=== PATIENT | female | born 1960 | race Caucasian/White ===

== ENCOUNTER 2024-11-30 18:14 | Emergency (ER) | payer BC ==
[2024-11-30] MEDS ORDERED: Sodium Chloride 0.9% 10 ML Syringe FLUSH PRN (19:06)
[2024-11-30 19:19] LABS: BASOPHILS PERCENT AUTO 0.2 % (0.1-1.3); EOSINOPHILS ABSOLUTE AUTO 0.07 K/uL (0.00-0.40); EOSINOPHILS PERCENT AUTO 0.6 % (0.0-5.4); HEMATOCRIT 42.1 % (34.3-46.0); HEMOGLOBIN 14.2 g/dL (11.2-15.5); IMMATURE GRAN ABSOLUTE AUTO 0.03 K/uL (0.00-0.23); IMMATURE GRAN PERCENT AUTO 0.3 % (0.0-0.7); LYMPHOCYTES ABSOLUTE AUTO 1.91 K/uL (0.8-3.3); MEAN CORPUSCULAR HEMOGLOBIN 29.7 pg (31.6-35.5); MEAN CORPUSCULAR HGB CONC 33.7 g/dL (31.6-35.5); MEAN CORPUSCULAR VOLUME 88.1 fL (81.4-99.0); MONOCYTES ABSOLUTE AUTO 1.21 K/uL (0.20-0.90); MONOCYTES PERCENT AUTO 10.1 % (3.3-12.6); NEUTROPHILS ABSOLUTE AUTO 8.69 K/uL (1.0-7.6); NEUTROPHILS PERCENT AUTO 72.8 % (40.0-78.1); PLATELET COUNT,PLT 240 K/uL (130-375); RED BLOOD CELL COUNT 4.78 M/uL (3.77-5.24); WHITE BLOOD CELL COUNT,WBC 11.9 K/uL (3.2-11.0)
[2024-11-30 19:20] LABS: BASOPHILS ABSOLUTE AUTO 0.02 K/uL (0.00-0.10)
[2024-11-30] MEDS: Ketorolac 15 MG/ML SDV IVPUSH ONE (19:34)
[2024-11-30] MEDS: Ondansetron 4 MG/2 ML SDV IVPUSH ONE (19:34)
[2024-11-30 19:40] LABS: ALANINE AMINOTRANSFERASE,ALT 16 U/L (12-78); ALBUMIN 3.5 g/dL (3.4-5.0); ALKALINE PHOSPHATASE 63 U/L (46-116); ANION GAP 10.7 mmol/L (5.0-14.0); ASPARTATE AMNIOTRANSFERASE,AST 8 U/L (15-37); BILIRUBIN TOTAL 1.1 mg/dL (0.2-1.0); BLOOD UREA NITROGEN,BUN 10 mg/dL (7-18); CALCIUM 9.4 mg/dL (8.5-10.1); CARBON DIOXIDE,CO2 28 mmol/L (21-32); CHLORIDE,CL 102 mmol/L (100-108); CREATININE 1.1 mg/dL (0.6-1.0); ESTIMATED GFR 56 mL/min (>60); GLUCOSE RANDOM 101 mg/dL (74-106); POTASSIUM,K 3.7 mmol/L (3.6-5.2); PROTEIN TOTAL,TP 7.2 g/dL (6.4-8.2); SODIUM,NA 137 mmol/L (140-148)
[2024-11-30] MEDS: Iopamidol 612 MG/ML 100 ML Bottle IV SCH (19:48)
[2024-11-30] MEDS: Sodium Chloride 0.9% 80 ML IV SCH (19:48)
[2024-11-30] MEDS: Sodium Chloride 0.9% 1,000 ML IV SCH (19:57)
[2024-11-30 21:10] LABS: APPEARANCE,URINE CLEAR (CLEAR); BILIRUBIN,URINE NEGATIVE (NEGATIVE); COLOR,URINE YELLOW (YELLOW); GLUCOSE,URINE NEGATIVE (NEGATIVE); KETONES,URINE TRACE mg/dL (NEGATIVE); LEUKOCYTE ESTERASE,URINE NEGATIVE (NEGATIVE); NITRITE,URINE NEGATIVE (NEGATIVE); OCCULT BLOOD,URINE TRACE-INTACT (NEGATIVE); PROTEIN,URINE NEGATIVE (NEGATIVE); UROBILINOGEN,URINE 0.2 EU/dL (0.2-1.0)
[2024-11-30 21:15] LABS: AMORPHOUS SEDIMENT,URINE NOT SEEN; BACTERIA,URINE FEW; EPITHELIAL CELLS,URINE FEW; MUCUS,URINE NOT SEEN; RBC,URINE 0-5 (0-5); WBC,URINE 0-5 (0-5)
[2024-11-30] MEDS: AMPICILLIN ONE (21:38)
[2024-11-30] MEDS: SULBACTAM ONE (21:38)
[2024-11-30] MEDS: Sodium Chloride 0.9% 100 ML ONE (21:38)
[2024-11-30] MEDS: Ampicillin/Sulbactam Na 3 GM in Sodium Chloride 0.9% 100 ML IV ONE (21:42)
== END 2024-11-30 22:14 | disposition home or self-care (01) ==
LOC: JP.ED 18:14
DX: K57.32 Diverticulitis of large intestine without perforation or abscess without bleeding (principal); Z79.899 Other long term (current) drug therapy; Z79.82 Long term (current) use of aspirin
CPT/HCPCS: 36415; 74177; 80053; 81001; 85025; 96361; 96365; 96375; 99284; J0295; J1885; J2405; J7030; Q9967